=== PATIENT | male | born 1990 | race Caucasian/White ===

== ENCOUNTER 2016-09-04 14:35 | Inpatient (IN) | payer OTHER ==
[~2016-09-04] VITALS: Ht 172.7 cm; Wt 63.4 kg
[2016-09-04] MEDS ORDERED: SODIUM CHLORIDE 0.9% 1000ML 1,000 ML IV STA (14:49)
[2016-09-04 14:57] VITALS: O2SAT 97
--- NOTE | 2016-09-04 15:04 | DIAGNOSTIC IMAGING REPORT ---
SINGLE VIEW CHEST CLINICAL HISTORY: Overdose. FINDINGS: An AP, portable, upright chest radiograph is obtained. No prior studies are available for comparison at the time of dictation. The cardiomediastinal silhouette is unremarkable. The lungs and pleural spaces are clear. No pneumothorax is seen. The bony thorax is grossly intact. IMPRESSION: No active disease in the chest. Electronically signed by: Osito Crum M.D. 09/04/2016 3:02 PM Dictated Date/Time: 09/04/2016 3:02 PM
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
[2016-09-04 15:20] LABS: BASO % 0.7 %; BASO ABS # 0.06 K/uL (0-0.2); COMPLETE YES; EOS % 9.8 %; HEMATOCRIT 45.2 % (42-52); IG% 0.1 %; LYMPH % 37.1 %; LYMPH ABS # 3.33 K/uL (1.2-3.4); MEAN CELL VOLUME 92.8 fL (80-100); MEAN CORPUSCULAR HEMOGLOBIN 32.2 pg (25-34); MEAN CORPUSCULAR HGB CONC 34.7 g/dl (32-36); MEAN PLATELET VOLUME 10.6 fL (7.4-10.4); MONO % 9.9 %; NEUT % 42.4 %; PLATELET COUNT 245 K/uL (130-400); RED BLOOD COUNT 4.87 M/uL (4.7-6.1); WHITE BLOOD COUNT 8.97 K/uL (4.8-10.8)
[2016-09-04 15:32] LABS: PARTIAL THROMBOPLASTIN RATIO 1.1; PROTHROMBIN TIME (PATIENT) 10.4 SECONDS (9.0-12.0)
[2016-09-04] MEDS ORDERED: METH60CA PO (15:34)
[2016-09-04] MEDS ORDERED: FLUT1SPR12 NAE (15:34)
[2016-09-04 15:40] LABS: ALT/SGPT 31 U/L (12-78); BLOOD UREA NITROGEN 10 mg/dl (7-18); BUN/CREATININE RATIO 11.4 (10-20); CALCIUM 9.2 mg/dl (8.5-10.1); CARBON DIOXIDE 32 mmol/L (21-32); CHLORIDE 106 mmol/L (98-107); CREATININE 0.91 mg/dl (0.60-1.40); GLUCOSE 89 mg/dl (70-99); POTASSIUM 5.1 mmol/L (3.5-5.1); SODIUM 142 mmol/L (136-145)
[2016-09-04 15:45] LABS: ALKALINE PHOSPHATASE 117 U/L (45-117); AST/SGOT 16 U/L (15-37)
--- NOTE | 2016-09-04 15:47 | DIAGNOSTIC IMAGING REPORT ---
CT HEAD WITHOUT CONTRAST (CT) CLINICAL HISTORY: OVERDOSE CHANGE IN MENTAL STATUS. COMPARISON STUDY: No previous studies for comparison. TECHNIQUE: Axial CT of the brain is performed from the vertex to the skull base. IV contrast was not administered for this examination. CT DOSE: 537.48 mGy.cm FINDINGS: No intra or extra-axial mass lesions are visualized. There is no CT evidence of acute cortical infarction. There is no evidence of midline shift. There is no acute hemorrhage. No calvarial fractures are visualized. There is no evidence of pathologic ventricular dilatation. There is ethmoid sinus mucosal thickening. IMPRESSION: No acute intracranial findings Electronically signed by: Aren Rossi M.D. 09/04/2016 3:46 PM Dictated Date/Time: 09/04/2016 3:45 PM
[2016-09-04 15:48] LABS: ACETAMINOPHEN < 2 ug/ml (10-30)
[2016-09-04 16:53] LABS: URINE APPEARANCE CLEAR (CLEAR); URINE BILIRUBIN NEG (NEG); URINE COLOR YELLOW; URINE NITRITE NEG (NEG); URINE PH 5.5 (4.5-7.5); URINE SPECIFIC GRAVITY 1.026 (1.000-1.030); UROBILINOGEN NEG (NEG)
[2016-09-04 16:54] LABS: MANUAL MICROSCOPIC REQUIRED? NO; REVIEW REQ? NO
[2016-09-04 17:17] LABS: BENZODIAZEPINE, URINE POS (NEG); COCAINE,URINE NEG (NEG); PHENCYCLIDINE, URINE NEG (NEG)
[2016-09-04 18:15] VITALS: O2SAT 98
[2016-09-04] MEDS ORDERED: LORAZEPAM 1 MG TAB SL STA (19:56)
[2016-09-04] MEDS ORDERED: ACETAMINOPHEN 325 MG TAB PO PRN (20:00)
[2016-09-04] MEDS ORDERED: BISMUTH SUBSALICYLATE PER ML OMNICELL CHARGE PO PRN (20:00)
[2016-09-04] MEDS ORDERED: NICOTINE POLACRILEX 2 MG GUM MT PRN (20:00)
[2016-09-04] MEDS ORDERED: SODIUM CHLORIDE 0.65% NA SOLN 45 ML (OCEAN) PRN (20:00)
[2016-09-04] MEDS ORDERED: hydrOXYzine HCL 25 MG TAB PO PRN ×2 (20:00)
[2016-09-04] MEDS ORDERED: MAGNESIUM HYDROXIDE SUSP 30 ML UDC PO PRN (20:00)
[2016-09-04] MEDS ORDERED: ALUMINUM/MAGNESIUM SUSP 30 ML UDC PO PRN (20:00)
[2016-09-04] MEDS ORDERED: HALOPERIDOL 5 MG TAB PO STA (20:09)
--- NOTE | 2016-09-04 20:30 | EMERGENCY ROOM VISIT NOTE ---
ED Visit Note First contact with patient: 18:31 I assumed care at the change of shift. A [address] The warrant was signed. [facility] the patient onto their psychiatric floor. I did order for 5 mg of oral Haldol and 2 mg of sublingual Ativan as the patient became somewhat anxious here in the emergency room. I did discuss these medications with the psychiatry service.
[2016-09-04] MEDS ORDERED: LORAZEPAM 1 MG TAB PO PRN (21:45)
[2016-09-04] MEDS ORDERED: LORAZEPAM 2 MG/ML 1 ML VIAL IM PRN (21:45)
[2016-09-04] MEDS ORDERED: HALOPERIDOL 5 MG TAB PO PRN (21:45)
[2016-09-04] MEDS ORDERED: HALOPERIDOL LACTATE 5 MG/ML 1 ML VIAL IM PRN (21:45)
[2016-09-04] MEDS: NICOTINE 21 MG/24 HR TDSY TD SCH (21:51)
[2016-09-04 22:33] VITALS: BP 122/67; PULSE 71; TEMP 36.7; BMI 21.3
[2016-09-05 02:49] VITALS: BP 122/67; PULSE 71; TEMP 36.7; Ht 172.7 cm; Wt 63.4 kg
[2016-09-05] MEDS: NICOTINE 21 MG/24 HR TDSY TD SCH (09:00)
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
[2016-09-05] MEDS ORDERED: BENZTROPINE MESYLATE 0.5 MG TAB PO PRN (13:30)
[2016-09-05] MEDS: RISPERIDONE ODT 1MG PO SCH (22:00)
[2016-09-06 06:49] VITALS: BP 117/78; PULSE 69; TEMP 36.4
--- NOTE | 2016-09-06 08:53 | Psychiatric Progress Notes ---
Progress Note Date of Service Sep 06, 2016. Interval History 26 yo male admitted on a 302 09/05/16 with acute psychosis with suspicion for use of Bath Salts and synthetic marijuana's Chief Complaint "OK I guess". Subjective Patient was seen & assessed interval progress reviewed with Treatment Team. The patient is awakened from sleep for the interview. He is cooperative. He denies hallucinations of any kind, SI or HI. He does not want to be in the hospital, but today is not agitated or demanding to leave. Yesterday he was agitated and aggressive requiring the presence of security. He was throwing things and kicking his nightstand. his mother and step father attempted to visit, but he became acutely agitated, blaming them for bringing him here and leaving him. He was not able to be rational with them and parents were eventually asked to leave. Nursing reports that his affect has been labile, going from anger to crying. He claims to have no memory of doing drugs or the behaviors reported by parents. Mother reported that there is much talk of Bath Salts and synthetic cannabis on the patient's Facebook page. He has been refusing meds and spending most of his time in bed. Review of Systems Constitutional: No chills, No fatigue, No fever, No problem reported, No sweats , No weakness, No weight loss ENT: No dental problems, No hearing loss, No nasal symptoms, No problem reported, No sore throat, No tinnitus, No trouble swallowing, No unusual epistaxis Respiratory: No cough, No dyspnea at rest, No dyspnea on exertion, No hemoptysis, No problem reported, No shortness of breath, No sputum, No wheezing Cardiovascular: No PND, No chest pain, No claudication, No edema, No orthopnea , No palpitations, No problem reported Abdomen: No GI bleeding, No constipation, No diarrhea, No nausea, No pain, No problem reported, No vomiting Musculoskeletal: No calf pain, No joint pain, No muscle pain, No problem reported, No swelling Neurologic: No balance problems, No memory loss, No numbness/tingling, No paralysis, No problem reported, No vertigo, No weakness Psychiatric: + problem reported (Unhappy to be in the hospital and saying he has no idea why he is here) Sleep Information Total Hours of Sleep: 9.00 Meal Information Percent of Breakfast Consumed: 0 Percent of Dinner Consumed: 100 Mental Status Exam During interview pt is: cooperative (at the time of the interview) Appearance: appropriately dressed, disheveled Eye contact is: fair Motor behavior is: no abnormal motor movements (lying in bed) Speech: normal in rate, rhythm & volume, loud Affect: blunted Mood is: irritable (labile) Thought process: goal directed, concrete Thought content: reality based without delusions (but last evening continued to be irrational) Suicidal thought are: denied Homicidal thoughts are: denied (but is unable to cooperate with safety planning ) Hallucinations: denies auditory, denies visual Cognition: language grossly intact Intelligence estimated to be: average Insight: impaired Judgement: impaired Impression Patient has been refusing meds and has continued to be labile, angry, aggressive. This AM for the brief period of time I was with him, he was calm and cooperative. If this is substance induced, we would hope to see his symptoms abating. I have asked him to reconsider the meds, which he had no response to. He remains on a 302 and will need to continue to gather information toward the need for further inpatient care. Will maintain the MNPR for another 24 hrs. Plan (1) Unspecified psychosis 09/05/16 The patient is admitted to [facility] ([facility] inpatient mental health unit ) on q 15 min checks (behavioral with suicide precautions) for safety. The patient will participate in group, recreational and milieu therapies and will be offered additional individual and family sessions as clinically appropriate. Haldol and Ativan prns, currently refusing. Discussed with him that he will be offered Risperdal M tab 1 mg this hs for his mood lability. He was not willing to engage in full discussion around risks/benefits/alternatives at this time but will be continuously readdressed in daily rounds. Will refine diagnosis prior to discharge. 09/06 - Continue meds, which patient is refusing - Will continue MNPR for another 24 hr based on agitation and aggression last evening. (2) Drug abuse patient is in denial and unable to engage in meaningful counseling upon admission due to his psychosis, synthetics pending (3) ADHD (attention deficit hyperactivity disorder) Metadate held as inpatient and psychotic. Query of CATHETER[employer]ATION LABORATORY TECHNICIAN Rx Aware database on admission confirms that correct dose of Metadate CD in 20 mg and he has been filling monthly by Dr. Zepeda for some time. Last fill date 08/27/16. This medication should not be resumed on discharge due to co-morbid substance use and recent psychosis. Discharge / Aftercare Planning Therapist: Name: maria ines Architectural Design Lecturer: Name: Liz Rai Visit Code E&M Code: 85074 Inventory Assets Strengths: supportive family, employed Needs: increase insight into condition, substance abuse treatment Risk Factors Assessment Male: Yes : Yes /single/: Yes Previous attempt: No Previous psychiatric stay: Yes Smoker: Yes Protective Factors Assessment : No Responsible for young children: No Employed: Yes Stable relationships: Yes Supportive family: Yes Data Vital Signs Last 24 Hrs: Date Time Temp Pulse Resp B/P Pulse Ox O2 Delivery O2 Flow Rate FiO2 09/06/16 06:49 36.4 69 16 117/78 09/05/16 12:15 Meds Administered Last 24 Hrs: Meds Administered (Past 24Hrs) Medications (Trade) Dose Ordered Sig/[place] Route Start Time Stop Time Status Last Admin Dose Admin Sodium Chloride (Nss 1000ml) 1,000 ml @ 999 mls/hr Q1H1M STAT IV 09/04/16 14:49 09/04/16 15:49 DC 09/04/16 15:33 999 MLS/HR Lorazepam (Ativan Tab) 2 mg NOW STAT SL 09/04/16 19:56 09/04/16 19:57 DC 09/04/16 20:25 2 MG Nicotine (Nicoderm Cq 21MG Patch) 1 patch QAM TD 09/05/16 09:00 10/05/16 08:59 09/04/16 21:51 1 PATCH Haloperidol (Haldol Tab) 5 mg NOW STAT PO 09/04/16 20:09 09/04/16 20:10 DC 09/04/16 20:27 5 MG Lab Results Last 24 Hrs: 09/04/16 14:06 Red Blood Count 4.87, Mean Corpuscular Volume 92.8, Mean Corpuscular Hemoglobin 32.2, Mean Corpuscular Hemoglobin Concent 34.7, Mean Platelet Volume 10.6, Neutrophils (%) (Auto) 42.4, Lymphocytes (%) (Auto) 37.1, Monocytes (%) (Auto) 9.9, Eosinophils (%) (Auto) 9.8, Basophils (%) (Auto) 0.7, Neutrophils # (Auto) 3.80, Lymphocytes # (Auto) 3.33, Monocytes # (Auto) 0.89, Eosinophils # (Auto) 0.88, Basophils # (Auto) 0.06 09/04/16 14:06 Test 09/04/16 14:06 09/04/16 15:01 09/04/16 15:15 09/04/16 16:41 White Blood Count 8.97 K/uL (4.8-10.8) Red Blood Count 4.87 M/uL (4.7-6.1) Hemoglobin 15.7 g/dL (14.0-18.0) Hematocrit 45.2 % (42-52) Mean Corpuscular Volume 92.8 fL (80-100) Mean Corpuscular Hemoglobin 32.2 pg (25-34) Mean Corpuscular Hemoglobin Concent 34.7 g/dl (32-36) Platelet Count 245 K/uL (130-400) Mean Platelet Volume 10.6 fL (7.4-10.4) Neutrophils (%) (Auto) 42.4 % Lymphocytes (%) (Auto) 37.1 % Monocytes (%) (Auto) 9.9 % Eosinophils (%) (Auto) 9.8 % Basophils (%) (Auto) 0.7 % Neutrophils # (Auto) 3.80 K/uL (1.4-6.5) Lymphocytes # (Auto) 3.33 K/uL (1.2-3.4) Monocytes # (Auto) 0.89 K/uL (0.11-0.59) Eosinophils # (Auto) 0.88 K/uL (0-0.5) Basophils # (Auto) 0.06 K/uL (0-0.2) RDW Standard Deviation 47.9 fL (36.4-46.3) RDW Coefficient of Variation 14.0 % (11.5-14.5) Immature Granulocyte % (Auto) 0.1 % Immature Granulocyte # (Auto) 0.01 K/uL (0.00-0.02) Prothrombin Time 10.4 SECONDS (9.0-12.0) Prothromb Time International Ratio 1.0 (0.9-1.1) Activated Partial Thromboplast Time 27.8 SECONDS (21.0-31.0) Partial Thromboplastin Ratio 1.1 Anion Gap 4.0 mmol/L (3-11) Est Creatinine Clear Calc Drug Dose 111.3 ml/min Estimated GFR () 135.3 Estimated GFR (Non- 116.7 BUN/Creatinine Ratio 11.4 (10-20) Calcium Level 9.2 mg/dl (8.5-10.1) Total Bilirubin 0.4 mg/dl (0.2-1) Direct Bilirubin 0.1 mg/dl (0-0.2) Aspartate Amino Transf (AST/SGOT) 16 U/L (15-37) Alanine Aminotransferase (ALT/SGPT) 31 U/L (12-78) Alkaline Phosphatase 117 U/L (45-117) Total Creatine Kinase 110 U/L (39-308) Troponin I < 0.015 ng/ml (0-0.045) Total Protein 7.9 gm/dl (6.4-8.2) Albumin 4.2 gm/dl (3.4-5.0) Lipase 114 U/L (73-393) Salicylates Level 2.6 mg/dl (2.8-20) Acetaminophen Level < 2 ug/ml (10-30) Bedside Glucose 73 mg/dl (70-99) Ethyl Alcohol mg/dL < 3.0 mg/dl (0-3) Urine Color YELLOW Urine Appearance CLEAR (CLEAR) Urine pH 5.5 (4.5-7.5) Urine Specific [place] 1.026 (1.000-1.030) Urine Protein NEG (NEG) Urine Glucose (UA) NEG (NEG) Urine Ketones NEG (NEG) Urine Occult Blood NEG (NEG) Urine Nitrite NEG (NEG) Urine Bilirubin NEG (NEG) Urine Urobilinogen NEG (NEG) Urine Leukocyte Esterase NEG (NEG) Urine Opiates Screen NEG (NEG) Urine Methadone, Qualitative NEG (NEG) Urine Barbiturates NEG (NEG) Urine Phencyclidine (PCP) Level NEG (NEG) Ur Amphetamine/Methamphetamine POS (NEG) MDMA (Ecstasy) Screen POS (NEG) Urine Benzodiazepines Screen POS (NEG) Urine Cocaine Metabolite NEG (NEG) Urine Marijuana (THC) POS (NEG)
[2016-09-06] MEDS: NICOTINE 21 MG/24 HR TDSY TD SCH (10:14)
[2016-09-06] MEDS: RISPERIDONE ODT 1MG PO SCH (21:25)
[2016-09-07 06:49] VITALS: BP_SYST 100; BP_SYST 104; BP_DIAS 64; BP_DIAS 71; PULSE 60; PULSE 71; TEMP 36.5
[2016-09-07] MEDS: NICOTINE 21 MG/24 HR TDSY TD SCH (08:48)
--- NOTE | 2016-09-07 09:39 | Psychiatric Progress Notes ---
Progress Note Date of Service Sep 07, 2016. Interval History 26 yo male admitted on a 302 09/05/16 with acute psychosis with suspicion for use of Bath Salts and synthetic marijuana's Chief Complaint "OK". Subjective Patient was seen & assessed interval progress reviewed with Treatment Team. Nursing report that the patient was calmer yesterday, attending groups with appropriate participation. He became angry again when his parents visited again , objecting to their idea that he had overdosed on anything. he continues to says that he has no memory of doing drugs, let alone overdosing. He reports that he was at the [facility] years ago, and was diagnosed with Bipolar Disorder. he does not remember what meds he was on, but does not think that they were helpful in any way. We discuss the possibility that his anger outbursts, may be a symptoms of his bipolar disorder. He listens attentively, but does not immediately want to consider the suggestion of meds, specifically depakote for his moods. I ask him to think about it. He inquires again about how long he needs to be here. We discuss a family meeting and he is able to say that he can be in control if a meeting is scheduled. He denies SI/HI, denies aud/vis hallucinations. Review of Systems Constitutional: + fatigue ENT: No dental problems, No hearing loss, No nasal symptoms, No problem reported, No sore throat, No tinnitus, No trouble swallowing, No unusual epistaxis Respiratory: No cough, No dyspnea at rest, No dyspnea on exertion, No hemoptysis, No problem reported, No shortness of breath, No sputum, No wheezing Cardiovascular: No PND, No chest pain, No claudication, No edema, No orthopnea , No palpitations, No problem reported Abdomen: No GI bleeding, No constipation, No diarrhea, No nausea, No pain, No problem reported, No vomiting Musculoskeletal: No calf pain, No joint pain, No muscle pain, No problem reported, No swelling Neurologic: No balance problems, No memory loss, No numbness/tingling, No paralysis, No problem reported, No vertigo, No weakness Psychiatric: + problem reported (ongoing irritability with parents) Integumentary: No bleeding, No color change, No itch, No new/changing skin lesions, No problem reported, No rash Sleep Information Total Hours of Sleep: 9.25 Meal Information Percent of Breakfast Consumed: 100 Percent of Lunch Consumed: 100 Percent of Dinner Consumed: 100 Mental Status Exam During interview pt is: cooperative Appearance: appropriately dressed, appropriately groomed Eye contact is: good Motor behavior is: no abnormal motor movements (lying in bed) Speech: normal in rate, rhythm & volume, loud Affect: blunted Mood is: irritable Thought process: goal directed, concrete Thought content: reality based without delusions Suicidal thought are: denied Homicidal thoughts are: denied (but is unable to cooperate with safety planning ) Hallucinations: denies auditory, denies visual Cognition: language grossly intact Intelligence estimated to be: average Insight: impaired Judgement: impaired Impression Has been in better behavioral control for the last 24 hrs with the exception of continuing to be angry with his parents for their accusations that he OD'd on something. he is still denying drug use, or memory of it. He is here on a 302 and will need to decide on further inpatient treatment by tomorrow. Will schedule a meeting with parents for tomorrow to discuss progress. he has continued to refuse meds but have asked him to consider a trial of depakote to anger/mood lability Plan (1) Unspecified psychosis 09/05/16 The patient is admitted to [facility] ([facility] mental health unit ) on q 15 min checks (behavioral with suicide precautions) for safety. The patient will participate in group, recreational and milieu therapies and will be offered additional individual and family sessions as clinically appropriate. Haldol and Ativan prns, currently refusing. Discussed with him that he will be offered Risperdal M tab 1 mg this hs for his mood lability. He was not willing to engage in full discussion around risks/benefits/alternatives at this time but will be continuously readdressed in daily rounds. Will refine diagnosis prior to discharge. 09/06 - Continue meds, which patient is refusing - Will continue MNPR for another 24 hr based on agitation and aggression last evening. 09/07 - DC MNPR - Continue to offer meds - Schedule family meeting for tomorrow (2) Drug abuse patient is in denial and unable to engage in meaningful counseling upon admission due to his psychosis, synthetics pending (3) ADHD (attention deficit hyperactivity disorder) Metadate held as inpatient and psychotic. Query of LEAD TEACHER Rx Aware database on admission confirms that correct dose of Metadate CD in 20 mg and he has been filling monthly by Dr. Zepeda for some time. Last fill date 08/27/16. This medication should not be resumed on discharge due to co-morbid substance use and recent psychosis. Discharge / Aftercare Planning Therapist: Name: maria ines Fiberglass Tube Molder: Name: Liz BairdNoris Visit Code E&M Code: 84137 Inventory Assets Strengths: supportive family, employed Needs: increase insight into condition, substance abuse treatment Risk Factors Assessment Male: Yes : Yes /single/: Yes Previous attempt: No Previous psychiatric stay: Yes Smoker: Yes Protective Factors Assessment : No Responsible for young children: No Employed: Yes Stable relationships: Yes Supportive family: Yes Data Vital Signs Last 24 Hrs: Date Time Temp Pulse Resp B/P Pulse Ox O2 Delivery O2 Flow Rate FiO2 09/07/16 06:49 36.5 60 16 100/64 71 104/71 Meds Administered Last 24 Hrs: Current Inpatient Medications Medications (Trade) Dose Ordered Sig/Frederick Route Start Time Stop Time Status Last Admin Dose Admin Acetaminophen (Tylenol Tab) 650 mg Q4H PRN PO 09/04/16 20:00 10/04/16 19:59 Bismuth Subsalicylate (Kaopectate Liqd) 15 ml PRN PRN PO 09/04/16 20:00 10/04/16 19:59 Al Hydroxide/Mg Hydroxide (Maalox Susp) 30 ml Q4H PRN PO 09/04/16 20:00 10/04/16 19:59 Magnesium Hydroxide (Milk Of Magnesia Susp) 30 ml DAILY PRN PO 09/04/16 20:00 10/04/16 19:59 Sodium Chloride ([place] Nasal [place]) PRN PRN NA 09/04/16 20:00 10/04/16 19:59 Hydroxyzine HCl (Vistaril Tab) 50 mg HSZ PRN PO 09/04/16 20:00 10/04/16 19:59 Hydroxyzine HCl (Vistaril Tab) 25 mg Q4H PRN PO 09/04/16 20:00 10/04/16 19:59 Nicotine (Nicoderm Cq 21MG Patch) 1 patch QAM TD 09/05/16 09:00 10/05/16 08:59 09/06/16 10:14 1 PATCH Nicotine Polacrilex (Nicorette 2MG Gum) 1 piece Q2H PRN MT 09/04/16 20:00 10/04/16 19:59 Miscellaneous (Remove Nicoderm Patch) 1 ea HS N/A 09/04/16 21:00 10/04/16 20:59 Haloperidol Lactate (Haldol Inj) 5 mg Q4 PRN IM 09/04/16 21:45 10/04/16 21:44 Haloperidol (Haldol Tab) 5 mg Q4H PRN PO 09/04/16 21:45 10/04/16 21:44 09/04/16 22:45 5 MG Lorazepam (Ativan Tab) 2 mg Q4 PRN PO 09/04/16 21:45 10/04/16 21:44 09/04/16 22:45 2 MG Lorazepam (Ativan Inj) 2 mg Q4H PRN IM 09/04/16 21:45 10/04/16 21:44 Risperidone (Risperdal M Tab) 1 mg HS PO 09/05/16 22:00 10/05/16 21:59 Benztropine Mesylate (Cogentin Tab) 0.5 mg Q6 PRN PO 09/05/16 13:30 10/05/16 13:29 Lab Results Last 24 Hrs: 09/04/16 14:06 Red Blood Count 4.87, Mean Corpuscular Volume 92.8, Mean Corpuscular Hemoglobin 32.2, Mean Corpuscular Hemoglobin Concent 34.7, Mean Platelet Volume 10.6, Neutrophils (%) (Auto) 42.4, Lymphocytes (%) (Auto) 37.1, Monocytes (%) (Auto) 9.9, Eosinophils (%) (Auto) 9.8, Basophils (%) (Auto) 0.7, Neutrophils # (Auto) 3.80, Lymphocytes # (Auto) 3.33, Monocytes # (Auto) 0.89, Eosinophils # (Auto) 0.88, Basophils # (Auto) 0.06 09/04/16 14:06 Test 09/04/16 14:06 09/04/16 15:01 09/04/16 15:15 09/04/16 16:41 White Blood Count 8.97 K/uL (4.8-10.8) Red Blood Count 4.87 M/uL (4.7-6.1) Hemoglobin 15.7 g/dL (14.0-18.0) Hematocrit 45.2 % (42-52) Mean Corpuscular Volume 92.8 fL (80-100) Mean Corpuscular Hemoglobin 32.2 pg (25-34) Mean Corpuscular Hemoglobin Concent 34.7 g/dl (32-36) Platelet Count 245 K/uL (130-400) Mean Platelet Volume 10.6 fL (7.4-10.4) Neutrophils (%) (Auto) 42.4 % Lymphocytes (%) (Auto) 37.1 % Monocytes (%) (Auto) 9.9 % Eosinophils (%) (Auto) 9.8 % Basophils (%) (Auto) 0.7 % Neutrophils # (Auto) 3.80 K/uL (1.4-6.5) Lymphocytes # (Auto) 3.33 K/uL (1.2-3.4) Monocytes # (Auto) 0.89 K/uL (0.11-0.59) Eosinophils # (Auto) 0.88 K/uL (0-0.5) Basophils # (Auto) 0.06 K/uL (0-0.2) RDW Standard Deviation 47.9 fL (36.4-46.3) RDW Coefficient of Variation 14.0 % (11.5-14.5) Immature Granulocyte % (Auto) 0.1 % Immature Granulocyte # (Auto) 0.01 K/uL (0.00-0.02) Prothrombin Time 10.4 SECONDS (9.0-12.0) Prothromb Time International Ratio 1.0 (0.9-1.1) Activated Partial Thromboplast Time 27.8 SECONDS (21.0-31.0) Partial Thromboplastin Ratio 1.1 Anion Gap 4.0 mmol/L (3-11) Est Creatinine Clear Calc Drug Dose 111.3 ml/min Estimated GFR () 135.3 Estimated GFR (Non- 116.7 BUN/Creatinine Ratio 11.4 (10-20) Calcium Level 9.2 mg/dl (8.5-10.1) Total Bilirubin 0.4 mg/dl (0.2-1) Direct Bilirubin 0.1 mg/dl (0-0.2) Aspartate Amino Transf (AST/SGOT) 16 U/L (15-37) Alanine Aminotransferase (ALT/SGPT) 31 U/L (12-78) Alkaline Phosphatase 117 U/L (45-117) Total Creatine Kinase 110 U/L (39-308) Troponin I < 0.015 ng/ml (0-0.045) Total Protein 7.9 gm/dl (6.4-8.2) Albumin 4.2 gm/dl (3.4-5.0) Lipase 114 U/L (73-393) Salicylates Level 2.6 mg/dl (2.8-20) Acetaminophen Level < 2 ug/ml (10-30) Bedside Glucose 73 mg/dl (70-99) Ethyl Alcohol mg/dL < 3.0 mg/dl (0-3) Urine Color YELLOW Urine Appearance CLEAR (CLEAR) Urine pH 5.5 (4.5-7.5) Urine Specific [place] 1.026 (1.000-1.030) Urine Protein NEG (NEG) Urine Glucose (UA) NEG (NEG) Urine Ketones NEG (NEG) Urine Occult Blood NEG (NEG) Urine Nitrite NEG (NEG) Urine Bilirubin NEG (NEG) Urine Urobilinogen NEG (NEG) Urine Leukocyte Esterase NEG (NEG) Urine Opiates Screen NEG (NEG) Urine Methadone, Qualitative NEG (NEG) Urine Barbiturates NEG (NEG) Urine Phencyclidine (PCP) Level NEG (NEG) Ur Amphetamine/Methamphetamine POS (NEG) MDMA (Ecstasy) Screen POS (NEG) Urine Benzodiazepines Screen POS (NEG) Urine Cocaine Metabolite NEG (NEG) Urine Marijuana (THC) POS (NEG)
[2016-09-07] MEDS: RISPERIDONE ODT 1MG PO SCH (21:20)
[2016-09-08 07:00] VITALS: BP_SYST 100; BP_SYST 114; BP_DIAS 65; BP_DIAS 75; PULSE 53; PULSE 81; TEMP 36.4
[2016-09-08] MEDS: NICOTINE 21 MG/24 HR TDSY TD SCH (09:00)
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
[2016-09-09 15:32] LABS: HYDROXYETHYLFLURAZEPAM CONF NEGATIVE NG/ML (CUTOFF=50); HYDROXYMIDAZOLAM NEGATIVE NG/ML (CUTOFF=50); HYDROXYTRIAZOLAM CONF NEGATIVE NG/ML (CUTOFF=50); TEMAZEPAM CONF NEGATIVE NG/ML (CUTOFF=50)
[2016-09-12 12:35] LABS: SYNTHETIC CANNABINOIDS QL URIN POSITIVE (Negative)
== END 2016-09-08 15:16 | disposition home or self-care (01) | DRG 885 ==
LOC: C.EDA 14:44 → C.MHU 20:02
PROVIDERS: ADMIT Psychiatry & Neurology Psychiatry; ATTEND Psychiatry & Neurology Psychiatry
DX: F29 Unspecified psychosis not due to a substance or known physiological condition (principal); R45.851 Suicidal ideations; F31.9 Bipolar disorder, unspecified; F17.210 Nicotine dependence, cigarettes, uncomplicated; F90.9 Attention-deficit hyperactivity disorder, unspecified type

== ENCOUNTER 2016-10-05 17:34 | Emergency (ER) | payer OTHER ==
[~2016-10-05] VITALS: Ht 172.7 cm; Wt 68.6 kg
[~2016-10-05 17:34] MED LIST: FLUT1SPR12 NAE
--- NOTE | 2016-10-05 17:46 | EMERGENCY ROOM VISIT NOTE ---
History Report prepared by Mariama: Reid May Under the Supervision of: Dr. Familia Thompson M.D. First contact with patient: 17:36 Chief Complaint: OVERDOSE (INTENTIONAL) Stated Complaint: DRUG OVERDOSE/ MARIJUANA(BLUE BREWER) History of Present Illness The patient is a 26 year old male who presents to the Emergency Room with complaints of a constant overdose occurring prior to arrival. The police state that the patient was found with synthetic bath salts and alcohol on him, and the patient admits to drinking alcohol. The patient denies any suicidal ideations. He states that he has been arrested in the past for drinking. Source of History: patient, police Onset: prior to arrival Position: other (global) Quality: other (overdose) Timing: constant Review of Systems See HPI for pertinent positives & negatives. A total of 10 systems reviewed and were otherwise negative. Past Medical & Surgical Medical Problems: (1) ADHD (attention deficit hyperactivity disorder) (2) Bipolar disorder (3) homicidal threats (4) Unspecified psychosis Social History Smoking Status: Current Every Day Smoker Alcohol Use: occasionally Drug Use: none Current/Historical Medications Scheduled PRN Fluticasone Propionate (Nasal) (Flonase Allergy Relief ), 1 SPRAY DIONICIO DAILY PRN for PRN Allergies Coded Allergies: Pseudoephedrine (Unverified Allergy, Unknown, NOSE BLEEDS, 09/04/16) Physical Exam Vital Signs Date Time Temp Pulse Resp B/P Pulse Ox O2 Delivery O2 Flow Rate FiO2 10/05/16 22:58 68 18 121/59 98 10/05/16 22:00 98 18 99/50 98 Room Air 10/05/16 20:00 96 18 94/43 98 Room Air 10/05/16 19:09 98 18 98/49 95 Room Air 10/05/16 17:52 36.3 95 16 101/61 95 Room Air Physical Exam GENERAL: Patient is sedate and under the influence. HEENT: No acute trauma, normocephalic atraumatic, mucous membranes moist, no nasal congestion, no scleral icterus. NECK: No stridor, no adenopathy, no meningismus, trachea is midline. LUNGS: No dyspnea. Clear to auscultation and equal bilaterally. No wheeze, no rhonchi. HEART: Mildly tachycardic rate and rhythm. No murmurs, rubs, gallops appreciated. ABDOMEN: Soft, nontender, bowel sounds positive, no masses appreciated, no peritonitis. BACK: No midline tenderness, no CVA tenderness EXTREMITIES: Normal motion all extremities, no cyanosis, no edema. NEUROLOGIC: intoxicated appearing, slurred simple speech, no acute motor or sensory deficits, no focal weakness, cranial nerves grossly intact. SKIN: No rash, no jaundice, no diaphoresis. Medical Decision & Procedures Laboratory Results 10/05/16 17:40 Red Blood Count 4.30, Mean Corpuscular Volume 92.6, Mean Corpuscular Hemoglobin 31.4, Mean Corpuscular Hemoglobin Concent 33.9, Mean Platelet Volume 10.1, Neutrophils (%) (Auto) 57.0, Lymphocytes (%) (Auto) 30.7, Monocytes (%) (Auto) 8.0, Eosinophils (%) (Auto) 3.7, Basophils (%) (Auto) 0.5, Neutrophils # (Auto) 4.34, Lymphocytes # (Auto) 2.34, Monocytes # (Auto) 0.61, Eosinophils # (Auto) 0.28, Basophils # (Auto) 0.04 10/05/16 17:40 Test 10/05/16 00:00 10/05/16 17:40 10/05/16 19:25 White Blood Count 7.62 K/uL (4.8-10.8) Red Blood Count 4.30 M/uL (4.7-6.1) Hemoglobin 13.5 g/dL (14.0-18.0) Hematocrit 39.8 % (42-52) Mean Corpuscular Volume 92.6 fL (80-100) Mean Corpuscular Hemoglobin 31.4 pg (25-34) Mean Corpuscular Hemoglobin Concent 33.9 g/dl (32-36) Platelet Count 226 K/uL (130-400) Mean Platelet Volume 10.1 fL (7.4-10.4) Neutrophils (%) (Auto) 57.0 % Lymphocytes (%) (Auto) 30.7 % Monocytes (%) (Auto) 8.0 % Eosinophils (%) (Auto) 3.7 % Basophils (%) (Auto) 0.5 % Neutrophils # (Auto) 4.34 K/uL (1.4-6.5) Lymphocytes # (Auto) 2.34 K/uL (1.2-3.4) Monocytes # (Auto) 0.61 K/uL (0.11-0.59) Eosinophils # (Auto) 0.28 K/uL (0-0.5) Basophils # (Auto) 0.04 K/uL (0-0.2) RDW Standard Deviation 45.9 fL (36.4-46.3) RDW Coefficient of Variation 13.5 % (11.5-14.5) Immature Granulocyte % (Auto) 0.1 % Immature Granulocyte # (Auto) 0.01 K/uL (0.00-0.02) Anion Gap 8.0 mmol/L (3-11) Est Creatinine Clear Calc Drug Dose 99.3 ml/min Estimated GFR () 107.6 Estimated GFR (Non- 92.8 BUN/Creatinine Ratio 15.9 (10-20) Calcium Level 8.5 mg/dl (8.5-10.1) Total Bilirubin 0.2 mg/dl (0.2-1) Aspartate Amino Transf (AST/SGOT) 13 U/L (15-37) Alanine Aminotransferase (ALT/SGPT) 29 U/L (12-78) Alkaline Phosphatase 95 U/L (45-117) Total Protein 7.0 gm/dl (6.4-8.2) Albumin 4.0 gm/dl (3.4-5.0) Globulin 3.0 gm/dl (2.5-4.0) Albumin/Globulin Ratio 1.3 (0.9-2) Thyroid Stimulating Hormone (TSH) 1.240 uIu/ml (0.300-4.500) Salicylates Level 2.2 mg/dl (2.8-20) Acetaminophen Level < 2 ug/ml (10-30) Ethyl Alcohol mg/dL < 3.0 mg/dl (0-3) Urine Color DK YELLOW Urine Appearance CLEAR (CLEAR) Urine pH 5.0 (4.5-7.5) Urine Specific [place] 1.032 (1.000-1.030) Urine Protein NEG (NEG) Urine Glucose (UA) NEG (NEG) Urine Ketones TRACE (NEG) Urine Occult Blood NEG (NEG) Urine Nitrite NEG (NEG) Urine Bilirubin NEG (NEG) Urine Urobilinogen NEG (NEG) Urine Leukocyte Esterase NEG (NEG) Urine WBC (Auto) 1-5 /hpf (0-5) Urine RBC (Auto) 0-4 /hpf (0-4) Urine Hyaline Casts (Auto) 1-5 /lpf (0-5) Urine Epithelial Cells (Auto) >30 /lpf (0-5) Urine Bacteria (Auto) NEG (NEG) Urine Renal Epithelial Cells /lpf (0-5) Urine Pathogenic Casts /lpf (0) Urine Mucus PRESENT (NONE PRSENT) Urine Opiates Screen NEG (NEG) Urine Methadone, Qualitative NEG (NEG) Urine Barbiturates NEG (NEG) Urine Phencyclidine (PCP) Level NEG (NEG) Ur Amphetamine/Methamphetamine POS (NEG) MDMA (Ecstasy) Screen NEG (NEG) Urine Benzodiazepines Screen NEG (NEG) Urine Cocaine Metabolite NEG (NEG) Urine Marijuana (THC) NEG (NEG) Laboratory results as reviewed by me. ED Course 1734: The patient was evaluated in room B2. A complete history and physical exam was performed. 2041: I reevaluated the patient, and he was sleeping The patient will be discharged when awake and oriented later Medical Decision Differential: Alcohol Intoxication, Drug Intoxication, Electrolyte Abnormality, Trauma, Intracranial Event, Toxicological, Excited Delirium, Serotonin Syndrome , amongst other pathologies entertained. 26 yr old male arrives via Police for evaluation of altered mental status. Found by police under influence and acting altered, with multiple drugs on his person. Clearly under influence without evidence head injury. Labs unremarkable. Positive for meth and I suspect synthetics positive as well. Sleeping deeply though awakens on evaluation to just fall asleep again. I do not feel CT necessary at this time in this patient who clearly has been taking multiple different drugs. On awakening he states he feels fine. He is A&Ox4 without any complaints. Exam is benign and he wishes to go home. Stable and aware RTED at any time if worsening or other concerns. I did make it clear to him that police were involved which he is also aware and remembers. Denies headache nor neck pain. Impression Primary Impression: Methamphetamine abuse Additional Impressions: Altered mental status Polysubstance abuse Scribe Attestation The scribe's documentation has been prepared under my direction and personally reviewed by me in its entirety. I confirm that the note above accurately reflects all work, treatment, procedures, and medical decision making performed by me. Departure Information Dispostion Home / Self-Care Referrals Ned Sher M.D. (PCP) Patient Instructions ED Drug Abuse General, [facility] Problem Qualifiers Additional Impressions: Altered mental status Altered mental status type: transient alteration of awareness Qualified Codes : R40.4 - Transient alteration of awareness
[2016-10-05 17:50] LABS: BASO % 0.5 %; BASO ABS # 0.04 K/uL (0-0.2); COMPLETE YES; EOS % 3.7 %; HEMATOCRIT 39.8 % (42-52); IG% 0.1 %; LYMPH % 30.7 %; LYMPH ABS # 2.34 K/uL (1.2-3.4); MEAN CELL VOLUME 92.6 fL (80-100); MEAN CORPUSCULAR HEMOGLOBIN 31.4 pg (25-34); MEAN CORPUSCULAR HGB CONC 33.9 g/dl (32-36); MEAN PLATELET VOLUME 10.1 fL (7.4-10.4); PLATELET COUNT 226 K/uL (130-400); WHITE BLOOD COUNT 7.62 K/uL (4.8-10.8)
[2016-10-05 17:52] VITALS: TEMP 36.3; Ht 172.7 cm; Wt 68.6 kg
[2016-10-05 18:09] LABS: BUN/CREATININE RATIO 15.9 (10-20); CALCIUM 8.5 mg/dl (8.5-10.1); CREATININE 1.1 mg/dl (0.60-1.40); POTASSIUM 4.1 mmol/L (3.5-5.1)
[2016-10-05 18:14] LABS: ACETAMINOPHEN < 2 ug/ml (10-30)
[2016-10-05 18:20] LABS: ALB/GLOB RATIO 1.3 (0.9-2); THYROID STIMULATING HORMONE 1.24 uIu/ml (0.300-4.500)
[2016-10-05 19:53] LABS: URINE APPEARANCE CLEAR (CLEAR); URINE BILIRUBIN NEG (NEG); URINE COLOR DK YELLOW; URINE EPITHELIAL CELL AUTO >30 /lpf (0-5); URINE NITRITE NEG (NEG); URINE SPECIFIC GRAVITY 1.032 (1.000-1.030); UROBILINOGEN NEG (NEG); ZZUR CULT IF INDIC CLEAN CATCH NO
[2016-10-05 19:59] LABS: BENZODIAZEPINE, URINE NEG (NEG); COCAINE,URINE NEG (NEG); PHENCYCLIDINE, URINE NEG (NEG)
[2016-10-05 20:01] LABS: MANUAL MICROSCOPIC REQUIRED? NO; REVIEW REQ? YES
[2016-10-05 20:13] LABS: URINE MUCUS PRESENT (NONE PRSENT)
[2016-10-05 22:58] VITALS: BP 121/59; PULSE 68; O2SAT 98
[2016-10-13 08:36] LABS: SYNTHETIC CANNABINOIDS QL URIN NEGATIVE (Negative)
== END 2016-10-05 23:09 | disposition home or self-care (01) ==
LOC: EDBD 17:34 → C.EDB 17:35
DX: R40.4 Transient alteration of awareness (principal); F15.10 Other stimulant abuse, uncomplicated; F19.10 Other psychoactive substance abuse, uncomplicated; F90.9 Attention-deficit hyperactivity disorder, unspecified type; F31.9 Bipolar disorder, unspecified; F17.210 Nicotine dependence, cigarettes, uncomplicated